=== PATIENT | female | born 2000 | race Caucasian/White ===

== ENCOUNTER 2023-02-05 08:32 | Emergency (ER) | payer BC, SELFPAY ==
[2023-02-05 08:43] VITALS: BP 122/78; BP 129/63; PULSE 63; PULSE 68; RESP 14; TEMP 36.9; O2SAT 100; O2SAT 99; BMI 20.5
--- NOTE | 2023-02-05 08:47 | ECG_ITS ---
Test Reason : near syncope Blood Pressure : / mmHG Vent. Rate : 055 BPM Atrial Rate : 055 BPM P-R Int : 120 ms QRS Dur : 084 ms QT Int : 394 ms P-R-T Axes : 071 079 064 degrees QTc Int : 376 ms Sinus bradycardia RSR' or QR pattern in V1 suggests right ventricular conduction delay T wave abnormality, consider anterior ischemia Abnormal ECG No previous ECGs available Referred By: Yancy Hood Electronically Signed By:ADILSON JORDAN
--- NOTE | 2023-02-05 08:51 | ED.NAVMDI ---
HPI - Nausea/Vomiting/Diarrhea General Chief complaint: Nausea/Vomiting/Diarrhea Stated complaint: NAUSEA VOMITING DIZZY ANXIETY Source: patient Mode of arrival: EMS Limitations: no limitations History of Present Illness HPI Narrative: 22 yo patient with PMH of IBS-c, anxiety no surgical history here with c/o n/v starting Thursday that resolved felt dizzy and weak yesterday. They ended up eating then felt dehydrated and hot does not have AC in dorm rooms and used ice packs threw up again at 5am. They were exposed to COVID on Thursday but tests negative at home. They came in feeling like they couldn't get up. MD elicited complaint: nausea and vomiting Onset (ago): day(s) (2) Description of vomiting: watery Associated nausea: Yes Associated abdominal pain: No Severity: mild Exacerbating factors: eating and movement Relieving factors: none Context: sick contacts (possible) Associated symptoms: loss of appetite, malaise, nausea/vomiting and weakness Related Data Previous Rx's Medication Instructions Recorded ondansetron 4 mg disintegrating 4 mg PO Q8H PRN nausea and 02/05/23 tablet vomiting #20 tabs Allergies Allergy/AdvReac Type Severity Reaction Status Date / Time Sulfa (Sulfonamide Allergy Rash Verified 02/05/23 08:50 Antibiotics) Review of Systems Review of Systems: Constitutional : No Weight loss, No Fever, No Chills ENT/Mouth : No sore throat, No Rhinorrhea Eyes: No Swelling, No Redness Cardiovascular : No Chest Pain, No SOB, NoEdema Respiratory : No Cough, No Sputum, No Wheezing Gastrointestinal : Positive Nausea, Positive Vomiting, no Diarrhea, no abdominal Pain, No Hematochezia, No Melena Genitourinary : No Dysuria, No Urinary Frequency, No Hematuria, No Urgency Musculoskeletal : No joint pain, No Myalgias, No Joint Swelling Skin : No Skin Lesions, No rash Neuro : pos Weakness, No Numbness, pos Dizziness, No Headache Psych : No Anxiety/Panic, No Depression Heme/Lymph: No Bruising, No Lymphadenopathy Endocrine : No Polyuria, No Polydipsia All other systems reviewed and are negative. Gastrointestinal: Gastrointestinal: Reports nausea PMFSH Past Medical History Attestation statement: The following information was validated with the patient. Medical History IBS (irritable colon syndrome) Anxiety Social History Social History (Updated 02/05/23 @ 08:54 by Yancy Hood DO) Alcohol intake: unknown Patient Tobacco Use Status: Never used Tobacco Smoked in Last 30 Days: No Use of substances other than those prescribed or required for medical reasons: No Advance Directives: No Patient : No Physical Exam Vital Signs: Vital Signs: Last Vital Signs Temp 97.8 F 02/05/23 10:35 Pulse 64 02/05/23 10:35 Resp 14 02/05/23 10:35 BP 104/63 02/05/23 10:35 Pulse Ox 99 02/05/23 10:35 O2 Del Method Room Air 02/05/23 10:35 BMI result Body Mass Index 20.5 Appearance: Alert. Oriented X3. No acute distress. Eyes: Pupils equal, round and reactive to light. ENT: Pharynx normal. Neck: Normal inspection. Neck supple. CVS: Normal heart rate and rhythm. Pulses normal. Respiratory: No respiratory distress. Breath sounds normal. Abdomen: Soft and nontender. Skin: Skin warm and dry. Normal skin color. Normal skin turgor. Extremities: No lower extremity edema. No calf ttp Neuro: Oriented X 3. No motor deficit. No sensory deficit. Course Course Course Narrative: patient has tolerated PO has normal VS, up and to bathroom they are very anxious about returning to school they are not eating, sleeping and is stressed out about school they want to stay with a friend's parent. they seem overwhelmed there is no medical reason they need admission at this time. Medications Administered Discontinued Medications Generic Name Dose Route Start Last Admin Trade Name Carlos PRN Reason Stop Dose Admin Sodium Chloride 1,000 mls @ 999 mls/hr 02/05/23 09:00 02/05/23 10:35 Ns IV 02/05/23 10:00 Infused .Q1H1M SHAHEEN Infusion Ondansetron HCl 4 mg 02/05/23 08:47 02/05/23 09:23 Ondansetron Hcl 4 Mg/2 Ml Vial IVPUSH 02/05/23 08:48 4 mg ONCE ONE Administration Medical Decision Making Medical Decision Making [facility] Narrative: 22 yo patient with PMH of IBS-c, anxiety no surgical history here with nausea/vomiting on and off for 2 days now with feeling dizziness and like they can't stand. They have no CP/abdominal pain and VS stable. Doubt PE given no CP/SOB they will need hydration, nausea medications, COVID swab and basic labs. Differential Diagnosis Differential Diagnoses: The differential diagnosis associated with the presentation includes dehydration, viral syndrome, Admission/Observation Consideration of admission/observation: Escalation of care including admission/observation considered no vomiting here labs stable - not toxic, likely combination of stress not eating and not sleeping can be managed as outpatient Lab Data MDM Lab Attestation statement: I reviewed the patient's lab results. 02/05/23 09:15 02/05/23 09:15 Labs: Lab Results 02/05/23 Range/Units 09:15 WBC 6.2 (4.8-10.8) X10*3/uL RBC 4.31 (4.20-5.50) X10*6/uL Hgb 12.5 (12.0-16.0) g/dl Hct 36.0 L (37.0-47.0) % MCV 83.5 (80.0-98.0) fL MCH 29.0 (27.0-33.0) pg MCHC 34.7 (31.0-35.0) g/dl RDW 12.1 (11.0-16.0) % Plt Count 260 (160-400) X10*3/uL MPV 11.4 (9.4-12.3) fL Immature Gran % (Auto) 0.2 (0.0-0.4) % Neut % (Auto) 62.7 (45-73) % Lymph % (Auto) 26.9 (20-40) % Clinton % (Auto) 9.3 (2-11) % Eos % (Auto) 0.3 (0-4) % Baso % (Auto) 0.6 (0-2) % Lymph # (Auto) 1.7 (1.2-4.9) X10*3/uL [place] # (Auto) 0.6 (0.1-1.2) X10*3/uL Eos # (Auto) 0.0 (0.0-0.4) X10*3/uL Baso # (Auto) 0.0 (0.0-0.2) X10*3/uL Abs Immat Gran (auto) 0.01 (0.00-0.03) X10*3/uL Absolute Neuts (auto) 3.9 (2.0-8.3) x10*3/uL Absolute Nucleated RBC 0.000 (0.0-0.012) X10*3/uL Nucleated RBC % (auto) 0.0 (0.0-0.2) /100WBC Sodium 141 (135-145) mmol/L Potassium 3.8 (3.3-5.1) mmol/L Chloride 111 H (96-108) mmol/L Carbon Dioxide 20 L (22-29) mmol/L Anion Gap 14 (12-20) BUN 4 L (9-16) mg/dL Creatinine 0.64 (0.5-1.4) mg/dL Estim Creat Clear Calc 119.7 Estimated GFR > 60 Random Glucose 97 (60-115) mg/dL Calcium 10.0 (8.4-10.2) mg/dL Magnesium 1.8 (1.6-2.6) mg/dL Total Bilirubin 0.4 (0.0-1.0) mg/dL Direct Bilirubin 0.1 (0.0-0.5) mg/dL AST 25 (5-31) U/L ALT 19 (0-31) U/L Alkaline Phosphatase 63 (39-117) U/L Total Protein 7.6 (6.5-8.0) g/dL Albumin 4.4 (3.5-5.0) g/dL Lipase 35 (8-78) U/L Beta HCG, Quant < 2 mIU/mL Urine Color Yellow Urine Appearance Clear Urine pH 8.0 (5.0-9.0) Ur Specific Lawson <= 1.005 (1.005-1.025) Urine Protein Negative (Neg-Trace) mg/dL Urine Glucose (UA) Negative (Negative) mg/dL Urine Ketones Negative (Negative) mg/dL Urine Blood Small (1+) H (Negative) Urine Nitrite Negative (Negative) Ur Leukocyte Esterase Negative (Negative) Urine RBC 0-2 (0-2) /HPF Urine WBC 0-5 (0-5) /HPF Ur Squamous Epith Cells 0-2 (0-2) /HPF Urine Bacteria None Seen (None Seen) Hyaline Casts 0-2 (0-2) /LPF COVID-19 (HENRY) Negative (Negative) COVID-19 Clin Com See Note Independent Interpretation I performed an independent interpretation of an: EKG Interpretation: Rate: 55 Rhythm: sinus bradycardia [place]: normal Normal P waves. Normal MANN. Normal QRS complex. ST T wave : t wave inversions V1-V3, no GILMER qTC: normal prior studies: suspect persistent juvenile t wave pattern The study has been interpreted contemporaneously by me. . Independent Historian Clinical information obtained from an independent historian. History obtained from or confirmed by: EMS Prescription Management I considered prescription management with: Other (zofran) Discharge Plan Discharge Clinical Impression: Nausea, Dehydration Patient Disposition: Home, Self-Care Instructions: Dehydration (ED), Acute Nausea and Vomiting (ED) Additional Instructions: stay hydrated and avoid the heat for the next two days. return for chest pain trouble breathing abdominal pain black or bloody stools or any other concerns. advance your diet slowly over two days. mix a bottle of gatorade and water and drink that along with water today. Prescriptions: New ondansetron 4 mg tablet,disintegrating 4 mg PO Q8H PRN (Reason: nausea and vomiting) Qty: 20 0RF Stand Alone Forms: Work/School Release
[2023-02-05 09:19] LABS: MANUAL DIFF FLAG NO
[2023-02-05] MEDS: 0.9 % Sodium Chloride 1,000 ML 999 ML IV (09:19)
[2023-02-05 09:21] LABS: Basophils Percent Auto 0.6 % (0-2); Eosinophils Percent Auto 0.3 % (0-4); Hemoglobin 12.5 g/dl (12.0-16.0); Imm Gran Abs Auto 0.01 X10*3/uL (0.00-0.03); Imm Gran Pct Auto 0.2 % (0.0-0.4); Lymphocytes Absolute Auto 1.7 X10*3/uL (1.2-4.9); Lymphocytes Percent Auto 26.9 % (20-40); Mean Corpuscular HGB Conc 34.7 g/dl (31.0-35.0); Mean Corpuscular Volume 83.5 fL (80.0-98.0); Mean Platelet Volume 11.4 fL (9.4-12.3); Monocytes Absolute Auto 0.6 X10*3/uL (0.1-1.2); Monocytes Percent Auto 9.3 % (2-11); Neutrophils Absolute Auto 3.9 x10*3/uL (2.0-8.3); Neutrophils Percent Auto 62.7 % (45-73); Platelet Count 260 X10*3/uL (160-400); Red Blood Count 4.31 X10*6/uL (4.20-5.50); Red Cell Distribution Width 12.1 % (11.0-16.0); White Blood Count 6.2 X10*3/uL (4.8-10.8)
[2023-02-05 09:23] LABS: Appearance Urine Clear; Color Urine Yellow; Glucose Urine UA Negative (Negative); Leukocyte Esterase Urine Negative (Negative); Nitrite Urine Negative (Negative); Specific Gravity - Urine <= 1.005 (1.005-1.025); UMIC TRIGGER UACC YES; Urine Blood Small (1+) (Negative); Urine Ketones Negative (Negative); Urine Protein Negative (Neg-Trace)
[2023-02-05] MEDS: ondansetron HCL 4 MG/2 ML VIAL IVPUSH (09:23)
[2023-02-05 09:42] LABS: COVID-19 Test Negative (Negative); IDNOW Serial# BCCEAD1C
[2023-02-05 09:46] LABS: Bacteria Urine None Seen (None Seen); Hyaline Casts Urine 0-2 /LPF (0-2); RBC Urine 0-2 /HPF (0-2); Squamous Epithelial Cell Urine 0-2 /HPF (0-2); WBC Urine 0-5 /HPF (0-5)
[2023-02-05 09:47] LABS: Alanine Aminotransferase 19 U/L (0-31); Albumin Level 4.4 g/dL (3.5-5.0); Alkaline Phosphatase 63 U/L (39-117); Anion Gap 14 (12-20); Aspartate Amino Transferase 25 U/L (5-31); Bilirubin Direct 0.1 mg/dL (0.0-0.5); Bilirubin Total 0.4 mg/dL (0.0-1.0); Blood Urea Nitrogen 4 mg/dL (9-16); Carbon Dioxide 20 mmol/L (22-29); Chloride 111 mmol/L (96-108); Creatinine Clr Calc Pharmacy 119.7; Estimated Glomerular Filt Rate > 60; Glucose Random 97 mg/dL (60-115); HCG Quantitative < 2 mIU/mL; Lipase 35 U/L (8-78); Magnesium 1.8 mg/dL (1.6-2.6); Potassium 3.8 mmol/L (3.3-5.1); Sodium 141 mmol/L (135-145); Total Protein 7.6 g/dL (6.5-8.0)
--- NOTE | 2023-02-05 10:24 | PC.NURSE ---
RESTING QUIETLY, FRIEND AT THE BEDSIDE
[2023-02-05 10:35] VITALS: BP 104/63; PULSE 64; RESP 14; TEMP 36.6; O2SAT 99
--- NOTE | 2023-02-05 11:36 | PC.NURSE ---
PO CHALLENGE PROVIDED. PT REPORTS INCREASED DIZZINESS WHEN SITTING AT THE EDGE OF THE BED.
--- NOTE | 2023-02-05 12:31 | PC.NURSE ---
pt continues with anxiety about discharge they were given pedilyte and apple juice. she has tolerated po intake of juice and crackers.
== END 2023-02-05 12:34 | disposition home or self-care (01) ==
PROVIDERS: Emergency Provider Emergency Medicine
DX: E86.0 Dehydration (principal); R11.2 Nausea with vomiting, unspecified; F41.9 Anxiety disorder, unspecified; R19.7 Diarrhea, unspecified; R53.81 Other malaise; Z20.822 Contact with and (suspected) exposure to COVID-19; Z79.899 Other long term (current) drug therapy
CPT/HCPCS: 80048; 80076; 81001; 83690; 83735; 84702; 85025; 87635; 93005; 96361; 96374; 99284; 99285; J2405